=== PATIENT | male | born 1940 | race Caucasian/White ===

== ENCOUNTER 2017-03-28 17:42 | Emergency (ER) | payer OTHER, MEDICARE ==
[2017-03-28 17:50] VITALS: BMI 20.3
--- NOTE | 2017-03-28 17:55 | PDOC ---
History of Present Illness - General History Source: Patient Exam Limitations: No Limitations - History of Present Illness Initial Comments: The patient is a 77 yo M with a past medical history significant for HTN who presents s/p mechanical fall 5 hours ago Patient states he was walking down hill and slipped on a rock and rolled down the hill. The patient states the tree stopped him rolling. The patient reports the tree hit him in the middle of his back.The patient states upon impact he felt very SOB as if the wind was knocked out of him. The patient states he walked back to his house and sat down. After an hour or so, the patient noticed when he got up to get something he was SOB. The patient also notes his neck is stiff and he has abrasions on his arms bilaterally. The patient denies head trauma and LOC. Allergies: dust, pollen and smoke Social Hx: smoker Surgical Hx: Hip and heel surgery <Martha Howard - Last Filed: 03/28/17 18:11> <Johnathon Neri - Last Filed: 03/28/17 22:50> - General Chief Complaint: Injury Stated Complaint: BACK PAIN Time Seen by Provider: 03/28/17 17:46 Past History <Martha Howard - Last Filed: 03/28/17 18:11> - Past Medical History Anemia: No Asthma: Yes (NO MEDS-INDUCED BY "DUST OF ALL KINDS") Cancer: No Cardiac Disorders: No CVA: No COPD: No CHF: No Dementia: No Diabetes: No GI Disorders: No Disorders: No HTN: Yes Hypercholesterolemia: No Liver Disease: No Seizures: No Thyroid Disease: No - Surgical History Abdominal Surgery: No Appendectomy: No Cardiac Surgery: No Cholecystectomy: No Lung Surgery: No Neurologic Surgery: No Orthopedic Surgery: No - Psycho/Social/Smoking Cessation Hx Suicidal Ideation: No Smoking History: Current every day smoker Have you smoked in the past 12 months: Yes Number of Cigarettes Smoked Daily: 20 Information on smoking cessation initiated: Yes 'Breaking Loose' booklet given: 03/28/17 Hx Alcohol Use: No Drug/Substance Use Hx: No Substance Use Type: None Hx Substance Use Treatment: No <Johnathon Neri - Last Filed: 03/28/17 22:50> - Past Medical History Allergies/Adverse Reactions: Allergies Allergy/AdvReac Type Severity Reaction Status Date / Time No Known Allergies Allergy Verified 03/28/17 17:43 Home Medications: Ambulatory Orders Aspirin [ASA -] 81 mg PO DAILY 02/13/14 Amlodipine Besylate 5 mg PO 03/28/17 Losartan Potassium 100 mg PO DAILY 03/28/17 Review of Systems - Review of Systems Constitutional: No: Chills, Fever Respiratory: Yes: Shortness of Breath. No: Cough, Hemoptysis Cardiac (ROS): No: Chest Pain, Lightheadedness, Palpitations ABD/GI: No: Nausea, Vomiting : No: Hematuria Musculoskeletal: Yes: Muscle Pain All Other Systems: Reviewed and Negative <Johnathon Neri - Last Filed: 03/28/17 22:50> *Physical Exam - Vital Signs Last Vital Signs Temp Pulse Resp BP Pulse Ox 97.9 F 81 18 142/64 96 03/28/17 17:42 03/28/17 17:42 03/28/17 17:42 03/28/17 17:42 03/28/17 17:42 - Physical Exam Comments: General: Patient is alert and in no acute distress. Speech is clear and appropriate. Head: Atraumatic and nontender. HEENT: Pupils are equal round and reactive to light, extraocular movements are intact. The tympanic membranes are clear, no hemotympanum. No facial deformity/ tenderness, no septal hematoma. The oropharynx is clear. Neck: The trachea is midline, there is no stridor. There is no midline cervical spine tenderness, full range of motion of neck. Chest: Nontender, no ecchymosis or abrasions. Heart: S1-S2, regular rate and rhythm. No murmurs. Lungs: Decreased breath sounds at R base. Good breath sounds in upper R lung field. Symmetric chest rise. Abdomen: Soft/nontender/nondistended. No RUQ tenderness. Bowel sounds are normal. There is no abdominal or flank ecchymosis. Back/Pelvis: There is no midline spine tenderness or step-off. Pelvis is stable and nontender. R scapular line around the R mid back there is a 8 cm area of superficial ecchymosis with superficial abrasion. There is some underlying rib deformity with questionable crepitus. No flail segment. No open laceration. There is a separate 2 cm very superficial abrasion in mid axillary line around the 4th rib but no rib tenderness or deformity or crepitus. Extremities: There is no extremity deformity or joint swelling. No focal bony tenderness throughout. 2+ distal pulses throughout. Neuro: Alert and oriented x3. Cranial nerves II through XII are intact. 5 out of 5 motor strength x4 extremities. Finger-nose- finger is intact. No pronator drift. Gait is stable. Skin: Superficial linear abrasion on R forearm about 15 cm in length but without underlying ecchymosis and bony deformity. 1cm superficial skin avulsion on the ulnar aspect of the L forearm without underlying ecchymosis or deformity. No hematomas or lacerations. Psych: Affect is appropriate. <Martha Howard - Last Filed: 03/28/17 18:11> - Vital Signs Last Vital Signs Temp Pulse Resp BP Pulse Ox 97.9 F 81 18 142/64 96 03/28/17 17:42 03/28/17 17:42 03/28/17 17:42 03/28/17 17:42 03/28/17 17:42 <Johnathon Neri - Last Filed: 03/28/17 22:50> Heart Score/ECG Review #1 ECG reviewed & interpreted by me at: 18:25 General ECG Interpretation: Sinus Rhythm (with APC noted), Normal Rate (86), Normal Intervals (qtc 445, qrs 86), No acute ischemic changes <Johnathon Neri - Last Filed: 03/28/17 22:50> ED Treatment Course - LABORATORY CBC & Chemistry Diagram: 03/28/17 18:16 03/28/17 18:16 <Johnathon Neri - Last Filed: 03/28/17 22:50> Medical Decision Making - Critical Care Time Total Critical Care Time (minutes): 100 Critical Care Statement: The care of this patient involved high complexity decision making to prevent further life threatening deterioration of the patient 's condition and/or to evalute & treat vital organ system(s) failure or risk of failure. - Medical Decision Making 03/28/17 18:15 A portion of this note was documented by scribe services under my direction. I have reviewed the details of the note, within reason, and agree with the documentation with the following case summary and management plan written by me. Very high functioning 77-year-old male with history of hypertension presents with right rib/back pain after accidental slip and fall. [facility] [place] [facility] [facility] on a hill and rolled down ultimately stopped by a tree which struck his right mid back. There was no direct head injury or loss of consciousness, he felt like the wind was knocked out of him but was able to get up after 5 minutes and walked back to the house. Subsequently noted that he was a bit dyspneic even with minimal exertion, so he presents for evaluation. Denies any cough or hemoptysis, is complaining of pain to the right mid back/ RIBS with deep inspiration or positional changes, denies any chest pain or lightheadedness/syncope. Recently started developing some discomfort to his upper back, but denies any headache/neck pain/extremity pain/motor or sensory deficit. No nausea or vomiting. No abdominal pain. Takes aspirin daily. Unknown last tetanus. HD stable with HR 80, BP 140 systolic. O2 sat on room air ranges from 90-96%. well appearing, standing in room speaking full sentences airway patient, trachea midline R posterior rib injury with ecchymosis, no deformity but + crepitus with decreased/distant breath sounds in the R lower lung field. Upper R lung field wnl. L lung field normal. HR wnl abd soft/nt/nd. no RUQ ttp or liver enlargement. no midline spine ttp, pelvis stable extremities without bony deformity/ttp, abrasions to both forearms. 77-year-old male with right posterior rib injury and dyspnea with borderline O2 sats and physical exam findings concerning for rib fracture complicated by underlying hemothorax and/or pneumothorax. Hemodynamically stable, is asymptomatic at rest, speaking full sentences and refusing any pain medication. Immediately placed on monitor with nonrebreather IV fluid resuscitation Stat portable chest x-ray and labs Will likely need CT of the chest with IV contrast Intervention/thoracostomy as dictated by imaging at this time given HD stability 03/28/17 18:45 Seated comfortably smiling in stretcher, speaking full sentences. 100% on NRB, HR 86, RR 18, BP 135/76. Awaiting labs, CXR just performed. 03/28/17 18:55 Labs are within normal limits, platelets 208, creatinine 1.4. Portable chest x-ray reveals large pneumothorax with likely trace hemothorax, trachea is otherwise midline without mediastinal deviation. Given the size of the pneumothorax, will need decompression. Consented for thoracostomy, will need transfer to [facility]. 03/28/17 20:[address] 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 Given size of ptx, will need emergent chest tube and transfer. PROCEDURE NOTE: EMERGENCY THORACOSTOMY: After consent and time out were performed, a Right thoracostomy was performed under sterile conditions. 2% lidocaine was used for local analgesia, a 2.5cm linear incision was made using a 10 blade scalpel. A curved clamp was used to dissect the soft tissue and penetrate the supracostal muscles and pleura. A gush of air was noted. The area was finger blunt dissected and no adhesions were noted. A 32 Fr chest tube was advanced posteriorly and superiorly. The tube was secured using sutures, marked 16 at the skin. A xeroform dressing was applied and a dressing sealed. The chest tube was attached to pleuravac and wall suction. A CT chest was ordered for further evaluation of the injury and chest tube placement. The pt tolerated the procedure extremely well. VS remained completely stable and he was talking to me throughout. Pt has consented for transfer to [facility] Trauma center, awaiting callback from trauma surgery. 03/28/17 20:15 Accepted for transfer to [facility] ED by Dr. Gutiérrez of trauma surgery. Pt in [place] when ambulance arrived for transfer, on my brief review of the available images there is posteriormedial placement of the chest tube tip with persistence of ptx explained by limited time on wall suction so far. Given HD stability and clinically asx, plan is to proceed with transfer to trauma center. Signed out to proceed with transfer, ALS team at bedside to bring patient to [facility]. 03/28/17 22:49 Reviewed the eventual [facility] rads interpretation: persistence of ptx with chest tube in position with tip in pleural fluid/hemorrhage. <Johnathon Neri - Last Filed: 03/28/17 22:50> *DC/Admit/Observation/Transfer - Attestations Scribe Attestion: Documentation prepared by Martha Howard, acting as medical affairs specialist for Johnathon Neri MD, /DO. <Martha Howard - Last Filed: 03/28/17 18:11> - Transfer to Acute Care Facility Receiving Facility: [facility]. Accepting Physician:: Dr. Gutiérrez (trauma service) Transfer comment: 03/28/17 20:17 Accepted for transfer to [facility] ER by trauma surgeon Dr. Gutiérrez for further trauma management/evaluation. Agrees with management, recommends adding CTAP with IV contrast to the Chest CT study. CTAP ordered. <Johnathon Neri - Last Filed: 03/28/17 22:50> Diagnosis at time of Disposition: Right rib fracture Qualifiers: Encounter type: initial encounter Rib fracture type: multiple ribs Fracture type: closed Qualified Code(s): S22.41XA - Multiple fractures of ribs, right side, initial encounter for closed fracture Traumatic pneumohemothorax Qualifiers: Encounter type: initial encounter Qualified Code(s): S27.2XXA - Traumatic hemopneumothorax, initial encounter - Discharge Dispostion Disposition: TRANSFER ACUTE CARE/OTHER HOSP Condition at time of disposition: Guarded - Referrals Referrals: Palma Magallanes MD [Primary Care Provider] -
[2017-03-28] MEDS ORDERED: SODIUM CHLORIDE 500 ML IV STA (18:07)
[2017-03-28] MEDS ORDERED: DIPHTH,PERTUSS(ACELL),TET 0.5 ML DISP.SYRIN IM ONE (18:10)
[2017-03-28 18:45] LABS: BASOPHIL 0.6 % (0-2.0); EOSINOPHIL 0.3 % (0-4.5); MCH 32.4 pg (25.7-33.7); MCHC 34.2 g/dl (32.0-35.9); MEAN CELL VOLUME 94.8 fl (80-96); MEAN PLT VOLUME 7.6 fl (7.5-11.1); NEUTROPHILS 87.2 % (42.8-82.8); PLATELET COUNT 208 K/MM3 (134-434); RDW 12.9 % (11.9-15.9); WHITE BLOOD COUNT 7.9 K/mm3 (4.0-10.8)
[2017-03-28 18:51] LABS: CPK(DFH) 181 IU/L (38-174)
[2017-03-28 18:52] LABS: ALBUMIN 4.4 g/dl (3.5-5.0); ALK PHOS 123 U/L (32-92); ANION GAP 8 (8-16); BILIRUBIN,TOTAL 0.5 mg/dl (0.2-1.0); CO2 23 mmol/L (22-28); CREATININE 1.4 mg/dl (0.6-1.3); GLUCOSE,RANDOM 114 mg/dl (74-106); SGOT/AST 21 U/L (10-42); SGPT/ALT 16 U/L (10-40); TOT PROT 7.3 g/dl (6.4-8.3)
[2017-03-28 18:58] LABS: ACTIVATED PTT 29.2 SECONDS (24.0-38.9)
[2017-03-28 19:02] LABS: INR 0.95 (0.82-1.09); PROTHROMBIN TIME (PATIENT) 10.6 SEC (10.2-13.0)
[2017-03-28 19:10] LABS: TROPONIN I (DFP) < 0.03 ng/ml (0.03-0.50)
[2017-03-28] MEDS ORDERED: LIDOCAINE HCL 2% (20ML MULTI-DOSE VIAL) NR ONE (19:13)
[2017-03-28 21:19] VITALS: BP 161/58; PULSE 89; TEMP 98.1
--- NOTE | 2017-03-29 08:25 | EKG ---
Test Reason : Blood Pressure : / mmHG Vent. Rate : 086 BPM Atrial Rate : 086 BPM P-R Int : 170 ms QRS Dur : 086 ms QT Int : 372 ms P-R-T Axes : 090 062 076 degrees QTc Int : 445 ms SINUS RHYTHM WITH OCCASIONAL PREMATURE VENTRICULAR COMPLEXES OTHERWISE NORMAL ECG NO PREVIOUS ECGS AVAILABLE Confirmed by RAQUEL BRENNAN MD ([id number]) on 03/29/2017 8:25:13 AM Referred By: SHANNAN Confirmed By:RAQUEL BRENNAN MD
== END 2017-03-28 21:00 | disposition short-term general hospital (02) ==
LOC: FER 17:42
PROC: 0W9900Z Drainage of Right Pleural Cavity with Drainage Device, Open Approach (ICD-10-PCS; principal; 2017-03-28)
PROC: 3E0234Z Introduction of Serum, Toxoid and Vaccine into Muscle, Percutaneous Approach (ICD-10-PCS; 2017-03-28)
PROC: 3E0337Z Introduction of Electrolytic and Water Balance Substance into Peripheral Vein, Percutaneous Approach (ICD-10-PCS; 2017-03-28)
DX: S27.2XXA Traumatic hemopneumothorax, initial encounter (principal); S22.41XA Multiple fractures of ribs, right side, initial encounter for closed fracture; W17.81XA Fall down embankment (hill), initial encounter; Y93.89 Activity, other specified; Y92.89 Other specified places as the place of occurrence of the external cause; F17.210 Nicotine dependence, cigarettes, uncomplicated; I10 Essential (primary) hypertension; J45.909 Unspecified asthma, uncomplicated
CPT/HCPCS: 36415; 71010-TC; 71260-TC; 72125-TC; 74177-TC; 80053; 82550; 82553; 83735; 84484; 85025; 85610; 85730; 86850; 86900; 86901; 90715; 93005; 99285-25

== ENCOUNTER 2019-06-28 06:24 | Day surgery (SDC) | payer OTHER, MEDICARE ==
[2019-06-20 11:44] VITALS: BMI 20.9
[2019-06-28] MEDS: TROPICAMIDE 1% OPHTH SOLN 15 ML BOTTLE ONE ×3 (07:00→07:10)
[2019-06-28] MEDS: CIPROFLOXACIN 0.3% EYE DROPS 5 ML BOTTLE ONE ×3 (07:00→07:10)
[2019-06-28] MEDS: PHENYLEPHRINE 2.5% OPHTH SOLN 15 ML BOTTLE ONE ×3 (07:00→07:10)
[2019-06-28] MEDS: CYCLOPENTOLATE 2% OPHTH SOLN 2 ML BOTTLE ONE ×3 (07:00→07:10)
[2019-06-28] MEDS ORDERED: LIDOCAINE 1% P/F 10 MG/ML VIAL ONE (07:14)
[2019-06-28] MEDS ORDERED: BSS (NA/CA/MG/K) BALANCED SALT SOLUTION OPHTH SOLN 15 ML BOTTLE ONE (07:14)
[2019-06-28] MEDS ORDERED: NEO/POLYMYX B SULF/DEXAMETH OPHTHALMIC 5ML BOTTLE ONE (07:14)
[2019-06-28] MEDS ORDERED: CARBACHOL 0.01% INTRA-OCULAR 1.5 ML VIAL ONE (07:14)
[2019-06-28] MEDS ORDERED: TETRACAINE 0.5% OPHTH SOLN 2 ML BOTTLE ONE (07:14)
[2019-06-28] MEDS ORDERED: EPINEPHrine/PF 1 MG/1 ML (1:1,000) AMPULE ONE (07:15)
[2019-06-28] MEDS ORDERED: MIDAZOLAM HCL 2 MG/2 ML SINGLE DOSE VIAL ONE (08:16)
[2019-06-28 09:07] VITALS: BP 121/75; PULSE 71; TEMP 98.1
--- NOTE | 2019-06-28 09:27 | OP ---
DATE OF OPERATION: 06/28/2019 OPERATIVE PROCEDURE: Lysis of posterior iris lens synechia and lens phacoemulsification with posterior chamber intraocular lens placement, right eye. PREOPERATIVE DIAGNOSIS: Visually significant cataract and posterior synechia of right eye. POSTOPERATIVE DIAGNOSIS: Visually significant cataract and posterior synechia of right eye. SURGEON: Mukesh Mercado M.D. ANESTHESIA: MAC PROCEDURE: The patient was brought to the operating room and placed under monitored anesthesia care by Anesthesia. A drop of tetracaine was then placed over the right eye. The patient was then prepped and draped in the usual sterile manner. A speculum was then placed over the right eye. The eye was then well irrigated with copious amounts of BSS (balanced salt solution). The operating microscope was then moved into position. A paracentesis was performed using a 15-degree blade. At this point 0.5 mL of 1% preservative-free lidocaine was injected into the anterior chamber. Amvisc Plus was then injected into the anterior chamber. A clear corneal incision was then formed using a 2.2 mm keratome. A cyclodialysis spatula was then used to break the posterior synechia. Two [employer] iris hooks were then used to stretch the iris. More Amvisc Plus was then injected into the anterior chamber. A capsulorrhexis was then performed in a continuous circular fashion beginning with a cystotome and completed with Utrata forceps. Hydrodissection was then performed using BSS on a cannula. The phaco probe was then introduced through the corneal wound and the cataract was removed using the phaco chop technique. Approximately 3 seconds of absolute phaco time was used. The remaining cortex was then removed using irrigation and aspiration with an I/A probe. The capsule was then filled with regular Amvisc and the capsule was noted to be intact. A previously selected foldable posterior chamber intraocular lens was then injected into the capsule through the corneal wound using a lens injector. It was then dialed into position using a Sinskey hook. The Amvisc was then removed using irrigation and aspiration. Miostat was then injected through the paracentesis to constrict the pupil. The paracentesis and corneal wound were then hydrated and noted to be watertight. A drop of Maxitrol was then placed over the eye. The speculum was removed and clear shield was taped over the eye. The patient tolerated the procedure well and there were no surgical complications. The patient was asked to follow up in my office the next day. MUKESH MERCADO M.D. [id number]
== END 2019-06-28 09:09 | disposition home or self-care (01) ==
LOC: FASU 06:24
PROVIDERS: ATTEND Ophthalmology
PROC: 08RJ3JZ Replacement of Right Lens with Synthetic Substitute, Percutaneous Approach (ICD-10-PCS; principal; 2019-06-28 08:20)
DX: H26.8 Other specified cataract (principal); H21.541 Posterior synechiae (iris), right eye

== ENCOUNTER 2019-06-30 07:32 | Emergency (ER) | payer OTHER, MEDICARE ==
[2019-06-30 07:38] VITALS: TEMP 97.9; BMI 20.9
--- NOTE | 2019-06-30 07:43 | PDOC ---
History of Present Illness - General Chief Complaint: Respiratory Stated Complaint: HOARSENESS, COUGH & COLD SX Time Seen by Provider: 06/30/19 07:33 - History of Present Illness Initial Comments: 06/30/19 07:47 79yo M hx HTN presents to the ED with cold symptoms for 5 days. Reports nasal congestion, cough with white phlegm. This morning, woke up, lost voice, was hoarse prompting ED visit. Has been taking ASA for cold sxs within minimal relief. Denies sore throat, stiff neck, bodyaches, headaches, fevers, chills, SOB/CP, N/V/D, abd pain, LE edema, weakness, dizziness, urinary sxs. Pt tolerating secretions, denies dysphagia, drooling. Has no known sick contacts. Pt is long time smoker. PCP: Dr. Connors, physical last month wnl Past History - Past Medical History Allergies/Adverse Reactions: Allergies Allergy/AdvReac Type Severity Reaction Status Date / Time No Known Allergies Allergy Verified 06/30/19 07:33 Home Medications: Ambulatory Orders Aspirin [ASA -] 81 mg PO ASDIR 02/13/14 Amlodipine Besylate 5 mg PO DAILY 03/28/17 Losartan Potassium 100 mg PO DAILY 03/28/17 Anemia: No Asthma: Yes (NO MEDS-INDUCED BY "DUST OF ALL KINDS") Cancer: No Cardiac Disorders: No CVA: No COPD: No CHF: No Dementia: No Diabetes: No GI Disorders: No Disorders: No HTN: Yes Hypercholesterolemia: No Liver Disease: No Seizures: No Thyroid Disease: No - Surgical History Abdominal Surgery: No Appendectomy: No Cardiac Surgery: No Cholecystectomy: No Lung Surgery: No Neurologic Surgery: No Orthopedic Surgery: No - Psycho Social/Smoking Cessation Hx Smoking History: Current some day smoker Have you smoked in the past 12 months: Yes Number of Cigarettes Smoked Daily: 5 Information on smoking cessation initiated: Yes 'Breaking Loose' booklet given: 03/28/17 Hx Alcohol Use: No Drug/Substance Use Hx: No Substance Use Type: None Hx Substance Use Treatment: No Review of Systems - Review of Systems Comments:: 06/30/19 08:07 GENERAL/CONSTITUTIONAL: No fever or chills. No weakness. HEAD, EYES, EARS, NOSE AND THROAT: No change in vision. No ear pain or discharge. No sore throat. +hoarse voice. GASTROINTESTINAL: No nausea, vomiting, diarrhea or constipation. GENITOURINARY: No dysuria, frequency, or change in urination. CARDIOVASCULAR: No chest pain or shortness of breath. RESPIRATORY: +cough, no wheezing, or hemoptysis. MUSCULOSKELETAL: No joint or muscle swelling or pain. No neck or back pain. SKIN: No rash NEUROLOGIC: No headache, vertigo, loss of consciousness, or change in strength/ sensation. ENDOCRINE: No increased thirst. No abnormal weight change. HEMATOLOGIC/LYMPHATIC: No anemia, easy bleeding, or history of blood clots. ALLERGIC/IMMUNOLOGIC: No hives or skin allergy. *Physical Exam - Vital Signs Last Vital Signs Temp Pulse Resp BP Pulse Ox 97.9 F 91 H 18 182/91 H 99 06/30/19 07:32 06/30/19 07:32 06/30/19 07:32 06/30/19 07:32 06/30/19 07:32 - Physical Exam Comments: 06/30/19 08:10 GENERAL: Awake, alert, and fully oriented, in no acute distress. Non toxic, well appearing EYES: PERRLA, EOMI, sclera anicteric, conjunctiva clear ENT: Auricles normal inspection, +hearing impairment, nares patent, oropharynx clear without exudates, erythema or tonsillar edema. Moist mucosa. +hoarse voice. NECK: Normal ROM, supple, no lymphadenopathy, JVD, or masses LUNGS: Breath sounds equal, clear to auscultation bilaterally. No wheezes, and no crackles HEART: Regular rate and rhythm, normal S1 and S2, no murmurs, rubs or gallops ABDOMEN: Soft, nontender, normoactive bowel sounds. No guarding, no rebound. No masses EXTREMITIES: Normal range of motion, no edema. No cords, erythema, or tenderness NEUROLOGICAL: Normal speech, cranial nerves intact, equal strength and sensation b/l SKIN: Warm, Dry, normal turgor, no rashes or lesions noted. Medical Decision Making - Medical Decision Making 06/30/19 08:11 79yo M prsents to the ED with hoarse voice in the setting of URI sxs. Vitals with elevated BP, pt just took blood pressure meds prior to arrival to ED No sxs concerning for end-organ damage. Pt with no fevers, SOB and lungs clear with normal O2 sat. Offered CXR due to smoking history but pt declined for now stating "I feel well" Hoarse voice likely due to laryngitis, plan for supportive care with expectorants, tea with honey, humidifier Plan discussed with pt and who are in agreement Return precautions discussed Pt is clinically stable for DC home I discussed the physical exam findings, ancillary test results and final diagnoses with the patient. I answered all of the patient's questions. The patient was satisfied with the care received and felt comfortable with the discharge plan and treatment plan. The patient will call their primary care physician within 24 hours to arrange follow-up and will return to the Emergency Department with any new, persistent or worsening symptoms. Discharge - Discharge Information Problems reviewed: Yes Clinical Impression/Diagnosis: URI, acute, Cough, Laryngitis Condition: Stable Disposition: HOME - Admission No - Follow up/Referral Referrals: Palma Magallanes MD [Primary Care Provider] - - Patient Discharge Instructions Patient Printed Discharge Instructions: DI for Laryngitis Additional Instructions: You have a condition called laryngitis likely due to your recent cold symptoms. You may use over the counter Mucinex to help loosen up the congestion. He may also find that tea with honey and lemon might make your symptoms better Using a humidifier in your living space, especially at night could also improve your symptoms. Follow-up with your primary doctor in 1 to 2 days. Return to the emergency department if you have any new, worsening or concerning symptoms such as fevers, shortness of breath, chest pain, or symptoms that are or weakness. It was a pleasure taking care of you today, we hope you feel better soon! -Dr. Leos - Post Discharge Activity
[2019-06-30 08:42] VITALS: BP 155/75; PULSE 86
== END 2019-06-30 08:10 | disposition home or self-care (01) ==
LOC: FER 07:32
DX: J06.9 Acute upper respiratory infection, unspecified (principal); R05 Cough; J04.0 Acute laryngitis; I10 Essential (primary) hypertension; F17.210 Nicotine dependence, cigarettes, uncomplicated; Z79.82 Long term (current) use of aspirin
CPT/HCPCS: 99283-25

== ENCOUNTER 2022-11-20 19:07 | Emergency (ER) | payer OTHER, MEDICARE ==
[2022-11-20 19:23] VITALS: BP 167/86; PULSE 104; RESP 20; TEMP 99.5; BMI 20.9
[2022-11-20 20:19] LABS: HEMATOCRIT 36.2 % (35.4-49); HEMOGLOBIN 12.3 G/dL (11.7-16.9); MCH 32.1 pg (25.7-33.7); MEAN CELL VOLUME 94.5 fl (80-96); MEAN PLT VOLUME 7.8 fl (7.5-11.1); PLATELET COUNT 215.6 10^3/uL (134-434); RBC 3.83 10^6/uL (4.00-5.60); RDW 15.2 % (11.9-15.9)
[2022-11-20 20:31] LABS: ALBUMIN 3.4 g/dl (3.4-5.0); BILIRUBIN,TOTAL 0.7 mg/dl (0.2-1); CALCIUM 8.6 mg/dl (8.5-10); CREATININE 1.3 mg/dl (0.55-1.3); TOT PROT 6.9 g/dl (6.4-8.2)
[2022-11-20] MEDS ORDERED: SODIUM CHLORIDE 500 ML IV STA (21:19)
[2022-11-20 21:34] LABS: PLATELET ESTIMATE ADEQUATE
[2022-11-20] MEDS ORDERED: ACETAMINOPHEN 1000 MG/100 ML BAG IVPB ONE (23:19)
[2022-11-20] MEDS ORDERED: ACETAMINOPHEN INJECTION 100 ML IVPB ONE (23:19)
[2022-11-20] MEDS ORDERED: AZITHROMYCIN 500 MG TABLET ONE (23:24)
[2022-11-20] MEDS ORDERED: AZITHROMYCIN 250 MG TABLET PO ONE (23:31)
== END 2022-11-20 23:33 | disposition home or self-care (01) ==
LOC: FER 19:07
PROC: 3E033NZ Introduction of Analgesics, Hypnotics, Sedatives into Peripheral Vein, Percutaneous Approach (ICD-10-PCS; principal; 2022-11-20)
PROC: 3E0337Z Introduction of Electrolytic and Water Balance Substance into Peripheral Vein, Percutaneous Approach (ICD-10-PCS; 2022-11-20)
DX: R91.1 Solitary pulmonary nodule (principal); J18.9 Pneumonia, unspecified organism; Z20.822 Contact with and (suspected) exposure to COVID-19
CPT/HCPCS: 0241U-QW; 36415; 71046-TC-FY; 71275-TC; 80053; 85027; 99284-25; Q9967